=== PATIENT | female | born 1965 ===

== ENCOUNTER 2017-08-12 05:58 | Day surgery (SDC) | payer BC, OTHER ==
[2017-08-12 05:59] VITALS: BMI 25.8
[2017-08-12] MEDS ORDERED: Sodium Chloride 0.9% 1,000 ML IV STA (06:52)
--- NOTE | 2017-08-12 06:55 | ED PDOC ---
Upper Extremity Pain/Injury Time Seen by Provider: 08/12/17 06:31 Chief Complaint (Nursing): Finger,Hand,&Wrist Chief Complaint (Provider): Upper Extremity Problem History Per: Patient History/Exam Limitations: no limitations Onset/Duration Of Symptoms: Days (x1) Current Symptoms Are (Timing): Still Present Quality: Tightness Additional Complaint(s): 52 year old female presents to ED with complaints of atraumatic right third digit pain and has a past medical history of diverticular disease, fatty liver, and trigger finger. Patient states that she had needed interarticular injections done by Dr. Young (orthopedist) to resolve pain. Notes that she is currently unable to flex her finger due to trigger finger currently present. Reports that she was advised by her orthopedist to come to the ED for evaluation. Orthopedist: Dr. Young Past Medical History Reviewed: Historical Data, Nursing Documentation, Vital Signs Vital Signs: Last Vital Signs Temp 96.9 F L 08/12/17 06:13 Pulse 102 H 08/12/17 06:13 Resp 18 08/12/17 06:13 BP 157/85 H 08/12/17 06:13 Pulse Ox 99 08/12/17 06:13 - Medical History PMH: Diverticulitis, Gastritis Denies: Chronic Kidney Disease Other PMH: fatty liver, trigger finger - Surgical History Surgical History: Appendectomy, Cholecystectomy, Tonsillectomy - Family History Family History: States: No Known Family Hx - Social History Current smoker - smoking cessation education provided: No Ex-Smoker (has not smoked in the last 12 months): No Alcohol: None Drugs: Denies - Immunization History Hx Tetanus Toxoid Vaccination: (not sure) - Home Medications Home Medications: Ambulatory Orders Medication Instructions Recorded Acetaminophen/Butalbital/Caf 1 tab PO DAILY PRN 04/20/16 [Fioricet] Ibuprofen [Motrin Ib] 800 mg PO Q8H PRN 04/20/16 Linaclotide [Linzess] 145 mg PO DAILY 04/20/16 ALPRAZolam [Xanax] 0.25 mg PO HS PRN 08/12/17 oxyCODONE/Acetaminophen [Percocet 1 ea PO Q4H PRN #10 tab 08/12/17 5/325 mg Tab] - Allergies Allergies/Adverse Reactions: Allergies Allergy/AdvReac Type Severity Reaction Status Date / Time No Known Allergies Allergy Verified 08/12/17 06:12 Review of Systems ROS Statement: Except As Marked, All Systems Reviewed And Found Negative Musculoskeletal: Positive for: Hand Pain (right third digit pain) Physical Exam - Reviewed Nursing Documentation Reviewed: Yes Vital Signs Reviewed: Yes - Physical Exam Appears: Positive for: Non-toxic, No Acute Distress Skin: Positive for: Normal Color, Warm, Dry Respiratory: Negative for: Respiratory Distress Extremity: Positive for: Tenderness (tenderness along MCP of third right digit) , Swelling (trace swelling to right hand). Negative for: Other ((-) warmth or erythema to the third right digit) Neurologic/Psych: Positive for: Alert, Oriented. Negative for: Motor/Sensory Deficits - Laboratory Results Result Diagrams: 08/12/17 06:50 08/12/17 06:50 - ECG O2 Sat by Pulse Oximetry: 99 (RA) Pulse Ox Interpretation: Normal Medical Decision Making Medical Decision Makin Initial impression: trigger finger Initial plan: * Call orthopedist [phone] Young's staff. Patient will be admitted for OR procedure for release of trigger finger. Scribe Attestation: Documented by Mago Dyson acting as a scribe for Karla Bell MD. Scribe Attestation: All medical record entries made by the Scribe were at my direction and personally dictated by me. I have reviewed the chart and agree that the record accurately reflects my personal performance of the history, physical exam, medical decision making, and the department course for this patient. I have also personally directed, reviewed, and agree with the discharge instructions and disposition. Disposition - Clinical Impression Clinical Impression: Trigger finger, right middle finger - Patient ED Disposition Is Patient to be Admitted: Yes - Disposition Disposition Time: 06:50 Condition: STABLE - Pt Status Changed To: Hospital Disposition Of: SDS- Endo,OR,Cath,IR
[2017-08-12 07:02] LABS: BASO % 0.7 % (0.0-2.0); EOS # 0.1 K/uL (0.0-0.7); EOS % 1.6 % (0.0-4.0); HEMATOCRIT 40.4 % (34.0-47.0); LYMPH # 2.7 K/uL (1.0-4.3); LYMPH % 43.2 % (20.0-40.0); MEAN CELL VOLUME 94.7 fl (81.0-99.0); MEAN CORPUSCULAR HEMOGLOBIN 31.7 pg (27.0-31.0); MEAN CORPUSCULAR HGB CONC 33.5 g/dL (33.0-37.0); MEAN PLATELET VOLUME 6.8 fl (7.2-11.7); MONO # 0.5 K/uL (0.0-0.8); MONO % 8.2 % (0.0-10.0); NEUT # 2.9 K/uL (1.8-7.0); NEUT % 46.3 % (50.0-75.0); NRBC % 0.1 % (0.0-0.0); RED CELL DISTRIBUTION WIDTH 13.6 % (11.5-14.5); WHITE BLOOD COUNT 6.2 K/uL (4.8-10.8)
[2017-08-12 07:10] LABS: ALB/GLOB RATIO 1.4 (1.0-2.1); ALKALINE PHOSPHATASE 133 U/L (38-126); ALT/SGPT 110 U/L (9-52); AST/SGOT 58 U/L (14-36); BILIRUBIN,TOTAL 0.2 mg/dl (0.2-1.3); BLOOD UREA NITROGEN 15 mg/dl (7-17); CALCIUM 8.9 mg/dL (8.4-10.2); CARBON DIOXIDE 29 mmol/L (22-30); CHLORIDE 110 mmol/L (98-107); GFR AFRICAN-AMERICAN > 60; GLUCOSE,RANDOM 119 mg/dL (65-105); POTASSIUM 4.5 MMOL/L (3.6-5.0); SODIUM 147 mmol/l (132-148); TOTAL PROTEIN 7.6 G/DL (6.3-8.2)
[2017-08-12 07:14] LABS: PARTIAL THROMBOPLASTIN TIME 29.8 Seconds (25.6-37.1)
[2017-08-12] MEDS ORDERED: Propofol 10 mg/ml Inj (20 ML) ONE (07:32)
[2017-08-12] MEDS ORDERED: Dexamethasone 4 mg/1 ml ONE (07:33)
[2017-08-12] MEDS ORDERED: Bacitracin Ointment 30 GM TUBE ONE (07:43)
[2017-08-12] MEDS ORDERED: ceFAZolin IV 1 gm in Dextrose 1 GM/50 ML BAG IVPB ONE (07:43)
[2017-08-12] MEDS ORDERED: MethylPREDNISolone Depo 40 mg/ml Inj ONE (07:43)
[2017-08-12] MEDS ORDERED: Bupivacaine 0.5% Inj(30mL) ONE (07:43)
--- NOTE | 2017-08-12 07:44 | CP.PCM.HP ---
History of Present Illness - History of Present Illness History of Present Illness: Chief Complaint : severe pain right hand third finger , unable to straighten finger HPI : 52 y/o lady with hx of right hand 3rd digit Trigger finger, Diverticulosis, Fatty Liver Dis and Migraine headache came bec of severe pain of her right hand . She has a Hx of Trigger Finger for almost 2 years and has been following up with dr Young for this. Her finger locks up when she flexes it and is unable to straighten it. She has been taking NSAIDs regularly and this only offers slight relief. She had several steroid injections by Dr Young however despite these , her pain and being unable to straighten her finger persisted. 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 PMD : DR Ramsey Present on Admission - Present on Admission Any Indicators Present on Admission: No Review of Systems - Review of Systems All systems: reviewed and no additional remarkable complaints except - Constitutional Constitutional: absent: Fever, Headache - EENT Eyes: absent: Blurred Vision, Change in Vision Ears: absent: Decreased Hearing, Ear Discharge, Ear Pain Nose/Mouth/Throat: absent: Nasal Congestion, Nasal Discharge - Cardiovascular Cardiovascular: absent: Chest Pain, Leg Edema, Orthopnea, Palpitations - Respiratory Respiratory: absent: Cough, Dyspnea, Dyspnea on Exertion - Gastrointestinal Gastrointestinal: absent: Abdominal Pain, Nausea, Vomiting - Genitourinary Genitourinary: absent: Change in Urinary Stream, Difficulty Urinating, Dysuria - Reproductive: Female Reproductive:Female: Post Menopausal - Menstruation Menstruation: Post Menopausal - Musculoskeletal Musculoskeletal: Joint Swelling, Limited Range of Motion (of her 3rd finger , right hand) - Integumentary Integumentary: absent: Skin Ulcer, Sores - Neurological Neurological: absent: Confusion, Dizziness, Focal Weakness, Headaches, Memory Loss, Paresthesias - Psychiatric Psychiatric: absent: Anxiety, Depression - Endocrine Endocrine: absent: Polydipsia, Polyphagia, Polyuria - Hematologic/Lymphatic Hematologic: absent: Easy Bleeding, Easy Bruising Past Patient History - Infectious Disease Hx of Infectious Diseases: None - Tetanus Immunizations Tetanus Immunization: Unknown - Past Medical History & Family History Past Medical History?: Yes - Past Social History Smoking Status: Never Smoked Chewing Tobacco Use: No Cigar Use: No Alcohol: Social Drugs: Denies Home Situation {Lives}: With Family - CARDIAC Hx Cardiac Disorders: No - PULMONARY Hx Respiratory Disorders: No - NEUROLOGICAL Hx Neurological Disorder: Yes Hx Migraine: Yes - HEENT Hx HEENT Problems: No - RENAL Hx Chronic Kidney Disease: No - ENDOCRINE/METABOLIC Hx Endocrine Disorders: No - HEMATOLOGICAL/ONCOLOGICAL Hx Blood Disorders: No - INTEGUMENTARY Hx Dermatological Problems: No - MUSCULOSKELETAL/RHEUMATOLOGICAL Hx Musculoskeletal Disorders: Yes (Trigger Finger) - GASTROINTESTINAL Hx Diverticulitis: Yes Hx Gastritis: Yes Other/Comment: Fatty Liver Dis - GENITOURINARY/GYNECOLOGICAL Hx Genitourinary Disorders: No - PSYCHIATRIC Hx Psychophysiologic Disorder: No - SURGICAL HISTORY Hx Appendectomy: Yes Hx Section: Yes Hx Cholecystectomy: Yes Hx Tonsillectomy: Yes - ANESTHESIA Hx Anesthesia: Yes Hx Anesthesia Reactions: No Hx Malignant Hyperthermia: No Meds Home Medications: Home Medication List Medication Instructions Recorded Confirmed Type oxyCODONE/Acetaminophen [Percocet 1 ea PO Q4H PRN #10 tab 08/12/17 Rx 5/325 mg Tab] Allergies/Adverse Reactions: Allergies Allergy/AdvReac Type Severity Reaction Status Date / Time No Known Allergies Allergy Verified 08/12/17 06:12 Physical Exam - Constitutional Appears: No Acute Distress - Head Exam Head Exam: ATRAUMATIC, NORMAL INSPECTION, NORMOCEPHALIC - Eye Exam Eye Exam: EOMI, Normal appearance, PERRL Pupil Exam: NORMAL ACCOMODATION - ENT Exam ENT Exam: Mucous Membranes Moist, Normal External Ear Exam - Neck Exam Neck exam: Positive for: Full Rom. Negative for: Meningismus - Respiratory Exam Respiratory Exam: NORMAL BREATHING PATTERN. absent: Rales, Wheezes, Respiratory Distress - Cardiovascular Exam Cardiovascular Exam: REGULAR RHYTHM, +S1, +S2 - GI/Abdominal Exam GI & Abdominal Exam: Normal Bowel Sounds, Soft. absent: Tenderness - Extremities Exam Extremities exam: Positive for: normal capillary refill, pedal pulses present. Negative for: calf tenderness, pedal edema Additional comments: Right Hand : 3rd finger prox metacarapl joint , palpable lump, unable to straighten finger, tenderness to palpation, pain on ROM of finger - Neurological Exam Neurological exam: Alert, CN II-XII Intact, Oriented x3, Reflexes Normal - Psychiatric Exam Psychiatric exam: Normal Affect, Normal Mood - Skin Skin Exam: Dry, Normal Color, Warm Results - Vital Signs Recent Vital Signs: Last Vital Signs Temp 96.9 F L 08/12/17 07:27 Pulse 102 H 08/12/17 07:27 Resp 18 08/12/17 07:27 BP 157/85 H 08/12/17 07:27 Pulse Ox 99 08/12/17 07:01 - Labs Result Diagrams: 08/12/17 06:50 08/12/17 06:50 Labs: Laboratory Results - last 24 hr 08/12/17 08/12/17 08/12/17 06:50 06:50 06:50 WBC 6.2 RBC 4.27 Hgb 13.5 Hct 40.4 MCV 94.7 MCH 31.7 H MCHC 33.5 RDW 13.6 Plt Count 276 MPV 6.8 L Neut % (Auto) 46.3 L Lymph % (Auto) 43.2 H Republic % (Auto) 8.2 Eos % (Auto) 1.6 Baso % (Auto) 0.7 Neut # 2.9 Lymph # 2.7 Republic # 0.5 Eos # 0.1 Baso # 0.0 PT 11.3 INR 1.0 APTT 29.8 Sodium 147 Potassium 4.5 Chloride 110 H Carbon Dioxide 29 Anion Gap 13 BUN 15 Creatinine 0.7 Est GFR ( Amer) > 60 Est GFR (Non-Af Amer) > 60 Random Glucose 119 H Calcium 8.9 Total Bilirubin 0.2 AST 58 H ALT 110 H Alkaline Phosphatase 133 H Total Protein 7.6 Albumin 4.5 Globulin 3.1 Albumin/Globulin Ratio 1.4 - EKG Data EKG Interpreted by: Myself EKG shows normal: Sinus rhythm Rate: Normal - EKG Data When Compared to Previous EKG: No Significant Change Assessment & Plan (1) Trigger finger, right middle finger Status: Acute Comment: Will obsreve in Med Surg. Ortho consult : Dr Young. Pain mgt with IV Morphine. OT consult (2) Diverticulosis Status: Chronic Comment: no signs of Diverticulitis (3) Non-alcoholic fatty liver disease Status: Chronic Comment: abn LFTs. ff up with Dr Finch (4) Migraine Status: Chronic Priority: Medium Comment: cont prn Fioricet Decision To Admit - Pt Status Changed To: Hospital Disposition Of: Observation - . Bed Request Type: Med/Surg Admitting Physician: Charlotte Lambert
--- NOTE | 2017-08-12 07:59 | CP.PCM.PN ---
Subjective - Date & Time of Evaluation Date of Evaluation: 08/12/17 Time of Evaluation: 07:56 - Subjective Subjective: [place] [employer]NIFE [employer]LA[employer] patient report reviewed, no narcotic pain medications. Patient counseled on the risks of addiction, physical or psychological dependence, and overdose associated with opioid drugs and the danger of taking opioid drugs with alcohol and other central nervous system depressants, and cautioned patient on storage and disposal. Objective - Vital Signs/Intake and Output Vital Signs (last 24 hours): Temp Pulse Resp BP Pulse Ox 96.9 F L 102 H 18 157/85 H 99 08/12/17 07:27 08/12/17 07:27 08/12/17 07:27 08/12/17 07:27 08/12/17 07:01 - Medications Medications: Current Medications Sodium Chloride (Sodium Chloride 0.9%) 1,000 mls @ 125 mls/hr IV .Q8H STA Stop: 08/12/17 14:51 Last Admin: 08/12/17 07:49 Dose: 125 mls/hr - Labs Labs: 08/12/17 06:50 08/12/17 06:50 PT 11.3 Seconds (9.8-13.1) 08/12/17 06:50 INR 1.0 (0.9-1.2) 08/12/17 06:50 APTT 29.8 Seconds (25.6-37.1) 08/12/17 06:50 - Extremities Exam Additional comments: Right long finger: cap refill < 2 seconds, sensation intact, noted trigger of finger, no erythema, skin intact Assessment and Plan (1) Trigger finger, right middle finger Assessment & Plan: NPO patient failed conservative mgmt with injections and now for surgical release d/w Dr. Young, agrees with above Status: Acute Past Patient History - Infectious Disease Hx of Infectious Diseases: None - Tetanus Immunizations Tetanus Immunization: Unknown - Past Medical History & Family History Past Medical History?: Yes - Past Social History Alcohol: None Drugs: Denies - CARDIAC Hx Cardiac Disorders: No - PULMONARY Hx Respiratory Disorders: No - NEUROLOGICAL Hx Neurological Disorder: No - HEENT Hx HEENT Problems: No - RENAL Hx Chronic Kidney Disease: No - ENDOCRINE/METABOLIC Hx Endocrine Disorders: No - HEMATOLOGICAL/ONCOLOGICAL Hx Blood Disorders: No - INTEGUMENTARY Hx Dermatological Problems: No - MUSCULOSKELETAL/RHEUMATOLOGICAL Hx Musculoskeletal Disorders: Yes - GASTROINTESTINAL Hx Diverticulitis: Yes Hx Gastritis: Yes - GENITOURINARY/GYNECOLOGICAL Hx Genitourinary Disorders: No - PSYCHIATRIC Hx Psychophysiologic Disorder: No - SURGICAL HISTORY Hx Appendectomy: Yes Hx Cholecystectomy: Yes Hx Tonsillectomy: Yes - ANESTHESIA Hx Anesthesia: Yes Hx Anesthesia Reactions: No Hx Malignant Hyperthermia: No
[2017-08-12 08:08] LABS: URINE COLOR YELLOW (YELLOW)
[2017-08-12 08:09] LABS: PH,URINE 6.5 (5.0-8.0); URINE BILIRUBIN NEGATIVE (NEGATIVE); URINE BLOOD NEGATIVE (NEGATIVE); URINE GLUCOSE (UA) NEGATIVE (Normal); URINE KETONE NEGATIVE (NEGATIVE); URINE PROTEIN NEGATIVE (NEGATIVE)
[2017-08-12 08:10] LABS: URINE LEUKOCYTE ESTERASE NEG Leu/uL (Negative); URINE UROBILINOGEN 0.2 mg/dL (0.2-1.0)
[2017-08-12] MEDS ORDERED: Sodium Chloride 0.9% 1,000 ML IV ONE ×2 (08:10→09:17)
[2017-08-12] MEDS ORDERED: Midazolam 2 MG/2 ML VIAL ONE (08:14)
[2017-08-12 08:21] LABS: RBC URINE 1 /hpf (0-3); WBC URINE 2 /hpf (0-5)
[2017-08-12] MEDS ORDERED: HYDROmorphone 0.5 mg/0.5 ml ISec IVP PRN (09:21)
[2017-08-12] MEDS ORDERED: Lactated Ringer's 1,000 ML IV SCH (09:30)
[2017-08-12] MEDS ORDERED: Oxycodone/Acetaminophen 5/325 mg Tab PO PRN (09:35)
--- NOTE | 2017-08-12 11:59 | PCM.SURG1 ---
Surgeon's Initial Post Op Note - Surgeon's Notes Surgeon: Hannah Garbage Worker: EYAL Monroe Type of Anesthesia: General LMA Anesthesia Administered By: Dr rubio Pre-Operative Diagnosis: trigger finger A1 brendan 3rd finger R hand Operative Findings: as abobe. stenosing tenovaginitis A1 brendan. foreign body a1 brendan region(deep). tenosynovitis flexor tendon Post-Operative Diagnosis: as above Operation Performed: release A1 brendan(trigger finger). removal foreign body. partial tenosynovectomy. intrarticular injection Specimen/Specimens Removed: tenosynvoium. crytalline deposit Estimated Blood Loss: EBL {In ML}: 5 Blood Products Given: N/A Drains Used: No Drains Post-Op Condition: Good Date of Surgery/Procedure: 08/12/17 Time of Surgery/Procedure: 08:45 (5time in room 8:10)
--- NOTE | 2017-08-12 12:06 | RAD ---
HISTORY: admit COMPARISON: Comparison made with chest radiograph dated 08/04/2009. TECHNIQUE: Chest PA and lateral FINDINGS: LUNGS: Suspect minor bibasilar atelectasis PLEURA: No significant pleural effusion identified. No pneumothorax apparent. CARDIOVASCULAR: Normal. OSSEOUS STRUCTURES: Minimal multilevel degenerative spondylosis of the thoracic spine. VISUALIZED UPPER ABDOMEN: Normal. OTHER FINDINGS: None. IMPRESSION: Suspect minor bibasilar atelectasis
[2017-08-12 13:02] VITALS: BP 115/77; PULSE 80; RESP 8; TEMP 98.1
--- NOTE | 2017-08-12 19:19 | OP ---
PROCEDURE DATE: 08/12/2017 PREOPERATIVE DIAGNOSES: Trigger finger, third finger A1 brendan, right hand. POSTOPERATIVE DIAGNOSES: 1. Trigger finger, third finger A1 brendan, right hand. 2. Foreign body in the region of the A1 brendan, deep in the palm. 3. Tenosynovitis. PROCEDURES PERFORMED: 1. Release of A1 brendan (release trigger finger, third finger right hand). 2. Removal of foreign body, deep. 3. Partial tenosynovectomy. 4. Intra-articular injection. SURGEON: Frankie Young MD. WATCH INSPECTOR: Emmy Yates, certified registered nursing child and youth program assistant. TYPE OF ANESTHESIA: General LMA anesthesia. COMPLICATIONS: None. DRAINS: None. 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 The patient noted a sharp pain and inability to extend the third finger of the right hand. As a result of the severe pain, the patient presented to the emergency room. The patient could not unlock the trigger finger, had severe pain in the area of the A1 brendan and again was well compensated prior to the injury. The patient did have a history of problems with the finger, but they were well compensated with intra-articular injection and anti-inflammatory medication. The patient is admitted to be taken to surgery as an emergency. Pros, cons, risks, and benefits of surgical approach were discussed. The possibility of nerve injury, secondary surgery, repeat triggering, possibility of recurrent locking were discussed. The patient could no longer stand the discomfort and wished the surgery to be accomplished. OPERATIVE PROCEDURE: After having obtained informed consent, after having identified side, site, and procedure, and a critical pause/time-out, after the satisfactory induction of the anesthetic, the patient was identified as Gaye Recinos in the supine position with all bony prominences well padded. The right upper extremity was prepped and free draped in the usual fashion for upper extremity surgery. The tourniquet had been applied, but was not yet inflated. The operation was performed under magnification 2.5 times. After having identified side, site, and procedure, and a critical pause/time-out, satisfactory induction of the LMA general anesthesia having been accomplished by Dr. Negrito Duran, the right upper extremity was prepped and free draped in the usual fashion for upper extremity surgery. The right upper extremity was exsanguinated after the time-out using a 4-inch Esmarch bandage. The tourniquet, which had been applied, was inflated to 250 mmHg. The operation was performed under 2.5 x eyeglass magnification. This having been accomplished, the middle finger was identified and was forcibly reduced with the patient asleep. This having been accomplished, there was a palpable locking in the area of the third finger A1 brendan. An incision approximately 2 cm in extent superficial to the A1 brendan was accomplished. The skin incision was carried down through the skin and subcutaneous tissue. Hemostasis was controlled with electrocautery. Great care was taken to avoid injury to the digital nerve. This having been accomplished, a trapezoid of tissue was identified. Again, the digital nerves were protected. There was found to be a stenosing tenovaginitis with the A1 brendan. This having been accomplished at the trapezoid with a #15 blade, great care was taken to excise the A1 brendan and the trapezoid off the scar tissue. This having been accomplished, there was found to be crystalline foreign body. This was removed as well using #15 blade, sent for specimen. At this point in time, there was found to be inflammation extending up the tendon and a careful partial flexor tenosynovectomy was accomplished using the Hicks dissecting scissors under direct vision. This having been accomplished, the wound was thoroughly irrigated. Hemostasis controlled. Great care was taken to ascertain that no damage occurred to the digital nerves. Closures in layers with interrupted Vicryl and nylon. Intra-articular injection of Marcaine and Depo-Medrol was accomplished. Compression dressing was applied. Frankie Young MD
[2017-08-13 03:52] VITALS: O2SAT 99
--- NOTE | 2017-08-14 11:57 | CARD ---
APPROVED REPORT EKG Measurement Heart [id number] <Conclusion> Normal sinus rhythm Normal ECG
== END 2017-08-12 13:10 | disposition home or self-care (01) ==
LOC: H.ER 05:58 → UNDOADMOB 06:54 → H.ERHOLD 06:54 → H.SDS 11:37
PROVIDERS: ATTEND Internal Medicine
DX: M65.331 Trigger finger, right middle finger (principal); Z79.1 Long term (current) use of non-steroidal anti-inflammatories (NSAID); K29.70 Gastritis, unspecified, without bleeding; Z87.891 Personal history of nicotine dependence
CPT/HCPCS: 26055; 26145; 28192; 71020; 80053; 81003; 81025; 85025; 85610; 85730; 88305; 93005; 99284; J0690; J1030; J1100; J1885; J2001; J2250; J2405; J2704; J2765; J3010; J7030; J7040; J7120

== ENCOUNTER 2018-07-29 11:38 | Emergency (ER) | payer OTHER ==
[2018-07-29 11:38] VITALS: BMI 25.8
[2018-07-29 11:46] VITALS: RESP 19
[2018-07-29 13:01] LABS: BASO % 0.4 % (0.0-2.0); EOS % 0.2 % (0.0-4.0); HEMOGLOBIN 13.8 g/dL (12.0-16.0); LYMPH # 3.4 K/uL (1.0-4.3); LYMPH % 45.2 % (20.0-40.0); MEAN CELL VOLUME 93.5 fl (81.0-99.0); MEAN CORPUSCULAR HEMOGLOBIN 31.2 pg (27.0-31.0); MEAN CORPUSCULAR HGB CONC 33.3 g/dL (33.0-37.0); MEAN PLATELET VOLUME 7.2 fl (7.2-11.7); MONO # 0.4 K/uL (0.0-0.8); MONO % 5.7 % (0.0-10.0); NEUT # 3.6 K/uL (1.8-7.0); NEUT % 48.5 % (50.0-75.0); RBC 4.42 Mil/uL (3.80-5.20); RED CELL DISTRIBUTION WIDTH 13.4 % (11.5-14.5); WHITE BLOOD COUNT 7.4 K/uL (4.8-10.8)
[2018-07-29 13:21] LABS: ALB/GLOB RATIO 1.4 (1.0-2.1); ALBUMIN 4.7 g/dL (3.5-5.0); ALT/SGPT 36 U/L (9-52); AST/SGOT 29 U/L (14-36); B-TYPE NATRIURETIC PEPTIDE 27.6 pg/ml (0-900); BLOOD UREA NITROGEN 12 mg/dl (7-17); CALCIUM 9.9 mg/dL (8.4-10.2); GFR NON-AFRICAN AMERICAN > 60
--- NOTE | 2018-07-29 13:35 | RAD ---
Date of service: 07/29/2018 HISTORY: chest pain COMPARISON: 08/12/2017 TECHNIQUE: Chest PA and lateral FINDINGS: LUNGS: No active pulmonary disease. PLEURA: No significant pleural effusion identified. No pneumothorax apparent. CARDIOVASCULAR: No aortic atherosclerotic calcification present. Normal cardiac size. No pulmonary vascular congestion. OSSEOUS STRUCTURES: No significant abnormalities. VISUALIZED UPPER ABDOMEN: Normal. OTHER FINDINGS: None. IMPRESSION: No active disease.
--- NOTE | 2018-07-29 14:24 | ED PDOC ---
HPI: Chest Pain Time Seen by Provider: 07/29/18 12:21 Chief Complaint (Nursing): Chest Pain Chief Complaint (Provider): Chest Pain History Per: Patient History/Exam Limitations: no limitations Onset/Duration Of Symptoms: Hrs Quality: Pressure Additional Complaint(s): 52 years old female presents to ER from work where she had substernal chest pain onset this morning. Patient reports pain feels like pressure and states it is similar to prior history of known costochondritis. She states she exercises frequently with no distress or intolerance. Does not take aspirin. Patient denies any dyspnea, nausea, dizziness, radiation of pain or history of prior cardiac issues. PMD: Jhony Ramsey Past Medical History Reviewed: Historical Data, Nursing Documentation Vital Signs: Last Vital Signs Temp 98.5 F 07/29/18 11:45 Pulse 93 H 07/29/18 11:45 Resp 19 07/29/18 11:45 BP 158/78 H 07/29/18 11:45 Pulse Ox 100 07/29/18 11:45 - Medical History PMH: Diverticulitis, Gastritis, Migraine Denies: Chronic Kidney Disease - Surgical History Surgical History: Appendectomy, Cholecystectomy, Tonsillectomy - Family History Family History: States: Unknown Family Hx - Social History Current smoker - smoking cessation education provided: No Alcohol: Social Drugs: Denies - Immunization History Hx Tetanus Toxoid Vaccination: (not sure) - Home Medications Home Medications: Ambulatory Orders Medication Instructions Recorded Acetaminophen/Butalbital/Caf 1 tab PO DAILY PRN 04/20/16 [Fioricet] Ibuprofen [Motrin Ib] 800 mg PO Q8H PRN 04/20/16 Linaclotide [Linzess] 145 mg PO DAILY 04/20/16 ALPRAZolam [Xanax] 0.25 mg PO HS PRN 08/12/17 oxyCODONE/Acetaminophen [Percocet 1 ea PO Q4H PRN #10 tab 08/12/17 5/325 mg Tab] - Allergies Allergies/Adverse Reactions: Allergies Allergy/AdvReac Type Severity Reaction Status Date / Time No Known Allergies Allergy Verified 08/12/17 06:12 DESIREE Risk Score for UA/NSTEMI - DESIREE Risk Score Age > 64: NO 3 or more CAD Risk Factors: NO Known CAD (Stenosis greater than 50%): NO Aspirin use in past 7 days: NO Severe Angina: NO EKG ST changes greater than 0.5mm: NO Positive Cardiac Marker: NO DESIREE Score: 0 Risk %: 5% Review of Systems ROS Statement: Except As Marked, All Systems Reviewed And Found Negative Cardiovascular: Positive for: Chest Pain (pressure) Respiratory: Negative for: Shortness of Breath Gastrointestinal: Negative for: Nausea Neurological: Negative for: Dizziness Physical Exam - Reviewed Nursing Documentation Reviewed: Yes Vital Signs Reviewed: Yes - Physical Exam Appears: Positive for: Non-toxic, No Acute Distress Head Exam: Positive for: ATRAUMATIC, NORMOCEPHALIC Skin: Positive for: Normal Color, Warm, Dry Eye Exam: Positive for: Normal appearance, EOMI, PERRL Neck: Positive for: Normal, Painless ROM, Supple Cardiovascular/Chest: Positive for: Regular Rate, Rhythm. Negative for: Murmur Respiratory: Positive for: Normal Breath Sounds. Negative for: Wheezing Gastrointestinal/Abdominal: Positive for: Normal Exam, Soft. Negative for: Tenderness Back: Positive for: Normal Inspection. Negative for: L CVA Tenderness, R CVA Tenderness Extremity: Positive for: Normal ROM. Negative for: Tenderness, Swelling Neurologic/Psych: Positive for: Alert, Oriented (x3) - Laboratory Results Result Diagrams: 07/29/18 12:20 07/29/18 12:20 - ECG ECG Rhythm: Positive for: Sinus Rhythm. Negative for: ST/T Changes Rate: 84 O2 Sat by Pulse Oximetry: 100 (RA) Pulse Ox Interpretation: Normal Medical Decision Making Medical Decision Making: Time: 1234 Initial Plan: --BTN --CMP --Urine --Urine dipstick --CBC --D-Dimer --Chest x-ray HEART score 1 1330 Chest x-ray FINDINGS: LUNGS: No active pulmonary disease. PLEURA: No significant pleural effusion identified. No pneumothorax apparent. CARDIOVASCULAR: No aortic atherosclerotic calcification present. Normal cardiac size. No pulmonary vascular congestion. OSSEOUS STRUCTURES: No significant abnormalities. VISUALIZED UPPER ABDOMEN: Normal. OTHER FINDINGS: None. IMPRESSION: No active disease. Time: 1425 --Labs reviewed and show no concerning abnormality --Negative Troponin and D-Dimer --Chest x-ray shows no active disease --Patient reports pain resolved and refuses to stay in the hospital, offered observation for r/o AR and cardio eval, she understands but wishes to leave. --Patient is discharge with instructions to follow up with PMD Scribe Attestation: Documented by Mandie Allison, acting as a scribe for Anuj Escobar MD. Provider Scribe Attestation: All medical record entries made by the Scribe were at my direction and personally dictated by me. I have reviewed the chart and agree that the record accurately reflects my personal performance of the history, physical exam, me dical decision making, and the department course for this patient. I have also personally directed, reviewed, and agree with the discharge instructions and disposition. Disposition - Clinical Impression Clinical Impression: Chest pain - Patient ED Disposition Is Patient to be Admitted: No - Disposition Referrals: Jhony Ramsey MD [Family Provider] - Disposition Time: 14:40 Condition: STABLE Additional Instructions: Followup in next 2 days with PMD. Return to ER for any concern. Instructions: Chest Pain Forms: [employer] (Italian)
[2018-07-29 15:08] VITALS: BP 128/78; TEMP 97.4
[2018-07-29 15:39] VITALS: PULSE 84; O2SAT 100
--- NOTE | 2018-07-30 07:01 | CARD ---
APPROVED REPORT Date of service: 07/29/2018 EKG Measurement Heart [id number] <Conclusion> Normal sinus rhythm Normal ECG
== END 2018-07-29 15:09 | disposition home or self-care (01) ==
LOC: H.ER 11:38
DX: R07.89 Other chest pain (principal)